=== PATIENT | female | born 1985 | race African-American/Black ===

== ENCOUNTER 2025-03-30 04:48 | Emergency (ER) | payer SELFPAY ==
[~2025-03-30] VITALS: Ht 167.6 cm; Wt 118.2 kg
[2025-03-30 04:52] VITALS: O2SAT 98
[2025-03-30] MEDS: ACETAMINOPHEN 1000MG/100ML 100 ML IV ONE (07:22)
[2025-03-30 07:35] LABS: BASOPHILS % 0.8 % (0.0-2.0); EOSINOPHILS % 0.1 % (0.0-5.0); HEMATOCRIT. 42.4 % (36.0-48.0); HEMOGLOBIN. 14.2 g/dL (12.0-16.0); LYMPHOCYTES % 26.2 % (20.0-50.0); MEAN PLATELET VOLUME 7.2 fl (7.4-10.4); MONOCYTES % 5.8 % (2.0-8.0); NEUTROPHILS % 67.1 % (40.0-76.0); PLATELET 290 x1000/uL (130-400); RED BLOOD CELL COUNT 4.92 mill/uL (4.2-5.4); RED CELL DISTRIBUTION WIDTH 13.3 % (11.6-14.6)
[2025-03-30 07:48] LABS: CREATININE 0.7 mg/dL (0.6-1.0); UREA NITROGEN BLOOD 18 mg/dL (9-23)
[2025-03-30 07:49] LABS: TROPONIN I HIGH SENSITIVITY < 4 ng/L (3.0-34)
[2025-03-30] MEDS: KETOROLAC 30MG/ML VIAL IV ONE (08:23)
[2025-03-30] MEDS ORDERED: T3 PO (08:29)
[2025-03-30] MEDS ORDERED: IBUP-1455 PO (08:29)
[2025-03-30] MEDS: DEXAMETHASONE 10 MG/ML VIAL IM ONE (10:20)
[2025-03-30 10:27] VITALS: BP 155/90; PULSE 67; RESP 14; TEMP 37; O2SAT 100
== END 2025-03-30 10:29 | disposition home or self-care (01) ==
LOC: ER 04:48
DX: M54.12 Radiculopathy, cervical region (principal); M25.512 Pain in left shoulder; R23.2 Flushing; Z79.1 Long term (current) use of non-steroidal anti-inflammatories (NSAID); Z90.710 Acquired absence of both cervix and uterus
CPT/HCPCS: 80048; 85025; 84484; 36415; 71045; 72125; 93005; 96372; 96374; 96375; 99285; J1100; J1885; Z7610; J0131